=== PATIENT | female | born 1955 | race Hispanic/Latino ===

== ENCOUNTER 2019-07-27 15:53 | Outpatient (CLI) | payer MEDICARE, OTHER | END 2019-07-27 15:54 | disposition home or self-care (01) | LOC: LABHHL 15:53 | PROVIDERS: ATTEND Surgery | DX: N63.24 Unspecified lump in the left breast, lower inner quadrant (principal) | CPT/HCPCS: 88305 ==

== ENCOUNTER 2019-08-03 08:19 | Outpatient (CLI) | payer MEDICARE, OTHER | END 2019-08-03 08:20 | disposition home or self-care (01) | LOC: LABHHL 08:19 | PROVIDERS: ATTEND Surgery | DX: N63.20 Unspecified lump in the left breast, unspecified quadrant (principal) | CPT/HCPCS: 88305; 88341; 88342 ==

== ENCOUNTER 2019-09-05 09:07 | Day surgery (SDC) | payer MEDICARE ==
[~2019-09-05 09:07] MED LIST: ceFAZolin/Water 2 GM/20 ML 2 GM/20 ML SYRINGE IV NR
[2019-09-05] MEDS ORDERED: HYDROmorphone 1 MG/1 ML INJ IV PRN (10:01)
--- NOTE | 2019-09-05 10:01 | Anesthesia Day of Surgery ---
Anesthesia Day of Surgery - Day of Surgery Patient Examined: Yes Patient H&P Reviewed: Yes Patient is NPO: Yes
--- NOTE | 2019-09-05 10:01 | Anesthesia Consultation ---
Anesthesia Consult and Med Hx Date of service: 09/05/19 - Airway Anesthetic Teeth Evaluation: Good ROM Head & Neck: Adequate Mental/Hyoid Distance: Inadequate Mallampati Class: Class II Intubation Access Assessment: Possibly Difficult - Pulmonary Exam CTA: Yes - Cardiac Exam Cardiac Exam: RRR - Pre-Operative Health Status ASA Pre-Surgery Classification: ASA3 Proposed Anesthetic Plan: General - Pulmonary Hx Smoking: Yes (quit 30yrs ago) Hx Respiratory Symptoms: No Hx Sleep Apnea: Yes (resolved with weight loss) - Cardiovascular System Hx Hypertension: No Hx Heart Attack/AMI: No (>4mets functional capacity) - Central Nervous System CVA: No Hx Psychiatric Problems: Yes (depression) - Gastrointestinal Hx Gastroesophageal Reflux Disease: No - Endocrine Hx Renal Disease: No Hx Liver Disease: No Hx Insulin Dependent Diabetes: No Hx Non-Insulin Dependent Diabetes: No Hx Thyroid Disease: No - Hematic Hx Anemia: Yes (no transfusion hx) - Other Systems Hx Alcohol Use: No Hx Substance Use: No Hx Cancer: Yes (hx breast ca) Hx Obesity: Yes (BMI 31) - Additional Comments Anesthesia Medical History Comments: Hx PONV. Reports good response to scop patch in the past.
[2019-09-05] MEDS ORDERED: MIDAZOLAM 2 MG/2 ML INJ IV NR (11:00)
[2019-09-05] MEDS ORDERED: LACTATED RINGERS 1,000 ML IV SCH (11:00)
[2019-09-05] MEDS ORDERED: GABAPENTIN 300 MG CAP PO NR (11:00)
[2019-09-05] MEDS ORDERED: SCOPOLAMINE TRANSDERMAL PATCH 72 HR TD NR (11:00)
[2019-09-05] MEDS ORDERED: CELECOXIB 200 MG CAP PO NR (11:00)
[2019-09-05] MEDS ORDERED: LIDOCAINE MPF (2%) 20 MG/1 ML VIAL 5 ML ONE (12:27)
[2019-09-05] MEDS ORDERED: fentaNYL 100 MCG/2 ML INJ ONE (12:27)
[2019-09-05] MEDS ORDERED: PROPOFOL 200 MG/20 ML VIAL IV ONE (12:27)
[2019-09-05] MEDS ORDERED: LIDOCAINE (1%) 10 MG/1 ML VIAL 20 ML MDV ONE (12:29)
[2019-09-05] MEDS ORDERED: BUPIVACAINE/PF (0.25%) 2.5 MG/ML 30 ML VIAL INFILTRATI ONE ×3 (12:29→13:47)
[2019-09-05] MEDS ORDERED: PHENYLEPHRINE/NS 1,000 MCG/10 ML SYRINGE (OR USE) IV ONE (12:58)
[2019-09-05] MEDS ORDERED: ONDANSETRON 4 MG/2 ML INJ ONE (12:58)
[2019-09-05] MEDS ORDERED: dexAMETHasone 20 MG/5 ML VIAL ONE (12:58)
[2019-09-05] MEDS ORDERED: GLYCOPYRROLATE 0.4 MG/2 ML INJ ONE (13:01)
[2019-09-05] MEDS ORDERED: SODIUM CHLORIDE 0.9% IRR 1,500 ML BOTTLE IR ONE (13:40)
[2019-09-05] MEDS ORDERED: LIDOCAINE (1%) 10 MG/1 ML VIAL 20 ML MDV INFILTRATI ONE ×2 (13:47)
[2019-09-05] MEDS ORDERED: LACTATED RINGERS 1,000 ML ONE (14:24)
--- NOTE | 2019-09-05 14:59 | Operative Report ---
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 Anesthesia: General Findings: Left breast angiosarcoma with 3 cm margin wide local excision Complications: None Drains: 15 Irish VICK Estimated blood loss: Minimal Disposition: PACU in good condition Indication for operative procedure: This is a 63-year-old lady with a personal history of Stage II left breast cancer in 1999. She underwent a left partial mastectomy with SLNB and completed adjuvant chemoradiation therapy. She later underwent a bilateral reduction mammoplasty in 2007. She was recently seen in followup for left breast exophytic mass with biopsy findings of an angiosarcoma. Recent CT chest with no findings of metastatic disease and breast MRI with no suspicious findings. Recommendations were to proceed with a wide local excision with at least 3 cm margins. She understands the role of possible additional radiation and chemotherapy and will be evaluated further following surgery to include molecular testing. She has met with medical oncology as well. Patient wished to proceed with the above procedure. The patient was procedure in detail: The patient was taken to the operating room and was laid supine. General anesthesia was administered. The left breast was prepped and draped in the normal sterile operative fashion. Timeout was performed. Left breast angiosarcoma was present at the inframammary fold around the 7-8:00 position. 3 cm marking margins were made. An elliptical incision was then made with part of the incision encompassing the superior abdomen. A breast incision was made with a 15 blade knife with dissection taken down to the subcutaneous tissues. First began raising of the lateral flap with dissection carried down posteriorly to the pectoralis muscle, followed by raising of the superior, medial, and inferior flaps all taken down posteriorly to the pectoralis muscle and upper abdomen.The area of concern was then removed with the aid of the Bovie cautery from the pectoralis muslce. The specimen was marked and then sent to pathology personally by myself. Hemostasis was obtained using the Bovie cautery. Breast cavity was anesthesized with 1% lidocaine and quarter percent marcaine. The breast cavity was irrigated and suctioned. A 15 Irish VICK drain was placed. Moblization of the breast tissues was then performed with undermining to ensure appropriate cosmetic closure. The deep breast tissues were approximated and closed using interrupted 2-0 Vicryl, the subcutaneous tissue were close with interrupted 3-0 Vicryl and skin brought together and closed using a running 4-0 Monocryl followed by dermabond. She tolerated surgery very well and was awakened from anesthesia without any complication and transported to PACU in good condition.
--- NOTE | 2019-09-05 15:04 | Short Stay Summary ---
Short Stay Documentation Date of service: 09/05/19 - History H&P: obtained from office - Allergies and Medications Current Medications: Allergies adhesive Allergy (Verified 09/03/19 14:12) Itching Home Medications Medication Instructions Recorded Confirmed Last Taken Type Cholecalciferol (Vitamin D3) 5,000 unit PO DAILY 09/03/19 09/05/19 09/04/19 08:00 History [Vitamin D3 5,000 UNIT] Cyanocobalamin (Vitamin B-12) 1,000 mcg PO DAILY 09/03/19 09/05/19 09/04/19 08:00 History [Vitamin B-12] FLUoxetine [PROzac] 20 mg PO QDAY 09/03/19 09/05/19 09/04/19 08:00 History Multivit-Min/FA/Lycopen/Lutein 1 each PO DAILY 09/03/19 09/05/19 09/04/19 08:00 History [Adults 50 Plus Multivitamin] HYDROcodone/APAP 5-325 [[place] 1 each PO Q6HR PRN #15 tablet 09/05/19 Unknown Rx 5/325] cephALEXin [Keflex] 500 mg PO Q12HR #14 cap 09/05/19 Unknown Rx Active Medications Celecoxib (Celebrex) 200 mg PO PREOP NR Stop: 09/05/19 16:00 Last Admin: 09/05/19 10:55 Dose: 200 mg Documented by: Gabapentin (Gabapentin) 300 mg PO PREOP NR Stop: 09/05/19 16:00 Last Admin: 09/05/19 10:55 Dose: 300 mg Documented by: Hydromorphone HCl (Dilaudid) 0.5 mg IV Q10MIN PRN PRN Reason: Pain , Severe (7-10) Stop: 09/05/19 23:00 Cefazolin Sodium (Ancef/Sterile Water 2 Gm/20 Ml) 2 gm in 20 mls @ 80 mls/hr IV PREOP NR; Protocol Stop: 09/05/19 23:59 Lactated Ringer's (Lactated Ringers) 1,000 mls @ 100 mls/hr IV DIRECT RAMOS Last Admin: 09/05/19 11:00 Dose: 100 mls/hr Documented by: Midazolam HCl (Versed) 2 mg IV PREOP NR Stop: 09/05/19 23:59 Last Admin: 09/05/19 12:00 Dose: 2 mg Documented by: Scopolamine (Transderm-Scop) 1 each TD PREOP NR Stop: 09/05/19 23:59 Last Admin: 09/05/19 10:55 Dose: 1 each Documented by: - Brief post op/procedure progress note Date of procedure: 09/05/19 Pre-op diagnosis: Left breast angiosarcoma Post-op diagnosis: same Procedure: Left breast angiosarcom wide local excision Anesthesia: GETA Findings: left breast angiosarcoma Surgeon: KELSEY FARRAR Estimated blood loss: minimal Pathology: list (left breast angiosarcoma) Specimen disposition: to lab Condition: stable - Disposition Condition at discharge: Good Disposition: DC- TO HOME OR SELFCARE Short Stay Discharge Plan Activity: other (no heavy lifting) Diet: regular Wound: keep clean and dry (may shower in 48 hours, no baths) Follow up with: SHARMAINE BURNHAM MD [Primary Care Provider] - 7 Days KELSEY FARRAR MD [Staff Physician] - 7 Days Prescriptions: cephALEXin [Keflex] 500 mg PO Q12HR #14 cap HYDROcodone/APAP 5-325 [[place] 5/325] 1 each PO Q6HR PRN #15 tablet PRN Reason: Pain
[2019-09-05] MEDS ORDERED: HYDROcodone/ACETAMINOPHEN 5-325 MG TAB PO PRN (15:19)
[2019-09-05 15:23] VITALS: BP 138/89
--- NOTE | 2019-09-05 15:33 | Post Anesthesia Evaluation ---
- Post Anesthesia Evaluation Patient Participated: Yes Airway Patent: Yes Stable Respiratory Function: Yes Nausea/Vomiting: No Temp > 96.8F: Yes Pain Manageable: Yes Adequeate Hydration: Yes Anesthesia Complications: No
== END 2019-09-05 15:55 | disposition home or self-care (01) ==
LOC: OR 09:07
PROVIDERS: ATTEND Surgery
DX: C50.312 Malignant neoplasm of lower-inner quadrant of left female breast (principal); G47.30 Sleep apnea, unspecified; F32.9 Major depressive disorder, single episode, unspecified; D64.9 Anemia, unspecified; E66.9 Obesity, unspecified; Z68.31 Body mass index [BMI] 31.0-31.9, adult; Z98.890 Other specified postprocedural states; Z80.8 Family history of malignant neoplasm of other organs or systems; Z88.8 Allergy status to other drugs, medicaments and biological substances; Z79.899 Other long term (current) drug therapy; Z87.891 Personal history of nicotine dependence
CPT/HCPCS: 19301; 88309; J0690; J1100; J2250; J2370; J2405; J2704; J3010; J7120; 88307

== ENCOUNTER 2021-01-21 08:34 | Outpatient (CLI) | payer MEDICARE, OTHER | END 2021-01-21 08:35 | disposition home or self-care (01) | LOC: LABHHL 08:34 | PROVIDERS: ATTEND Surgery | DX: N63.41 Unspecified lump in right breast, subareolar (principal) | CPT/HCPCS: 88305; 88341; 88342 ==